=== PATIENT | female | born 1955 | race Caucasian/White ===

== ENCOUNTER 2017-10-08 08:36 | Day surgery (SDC) | payer MEDICAID, OTHER ==
[~2017-10-08] VITALS: Ht 162.6 cm; Wt 98.0 kg
[~2017-10-08 08:36] MED LIST: ATOR-2 PO; INSU500I SQ; LORA10TA7 PO; LOSA100T14 PO; MONT10TA21 PO; SITA1TBM4 PO
[2017-10-08] MEDS ORDERED: MIDAZOLAM HCL 2 MG/2 ML VIAL ONE (14:17)
[2017-10-08] MEDS ORDERED: FENTANYL CITRATE/PF 50MCG/ML 2ML VIAL ONE (14:17)
[2017-10-08] MEDS ORDERED: PROPOFOL 200MG/20ML VIAL IV ONE (14:18)
[2017-10-08] MEDS ORDERED: LIDOCAINE HCL/PF 1% 10 MG/ML 5ML VIAL ONE (14:19)
[2017-10-08] MEDS ORDERED: BUPIVACAINE HCL/PF 0.75% (7.5MG/ML) 10ML ONE (15:24)
[2017-10-08] MEDS ORDERED: PREDNISOLONE ACETATE 1% OPHTH DROPS 1ML ONE (15:24)
[2017-10-08] MEDS ORDERED: NEO/POLYMYX B SULF/DEXAMETH OPHTH OINT 3.5GM ONE (15:24)
[2017-10-08] MEDS ORDERED: LIDOCAINE HCL 2%/EPINEPHRINE 1:100,000 20 ML VIAL INFIL ONE (15:24)
[2017-10-08] MEDS ORDERED: TETRACAINE 0.5% OPHTH DROPS 4ML ONE (15:24)
[2017-10-08] MEDS ORDERED: BALANCED SALT IRRIG SOLN 15ML ONE (15:24)
[2017-10-08] MEDS ORDERED: CIPROFLOXACIN 0.3% OPHTH SOLN 2.5ML ONE (15:24)
[2017-10-08] MEDS ORDERED: ONDANSETRON HCL 4MG/2ML VIAL IV PRN (15:45)
== END 2017-10-08 15:40 | disposition home or self-care (01) ==
LOC: OR 08:36
PROVIDERS: ATTEND Ophthalmology
DX: H11.001 Unspecified pterygium of right eye (principal); I10 Essential (primary) hypertension; E11.9 Type 2 diabetes mellitus without complications; J45.909 Unspecified asthma, uncomplicated; E78.5 Hyperlipidemia, unspecified; M19.90 Unspecified osteoarthritis, unspecified site; E66.3 Overweight; Z68.36 Body mass index [BMI] 36.0-36.9, adult; Z79.4 Long term (current) use of insulin; Z79.899 Other long term (current) drug therapy; Z90.710 Acquired absence of both cervix and uterus; Z98.890 Other specified postprocedural states
CPT/HCPCS: 65426; 82962; J2250; J3010; J3490; J7120; J2704